=== PATIENT | male | born 1975 | race Caucasian/White ===

== ENCOUNTER 2017-10-02 14:48 | Emergency (ER) | payer OTHER ==
[2017-10-02] MEDS ORDERED: HYDROmorphone 0.5 MG/0.5 ML SYRINGE IM ONE (16:07)
[2017-10-02] MEDS ORDERED: Diazepam 5 MG Tab PO ONE (16:08)
--- NOTE | 2017-10-02 16:22 | EDM.PDOC ---
<Alicia Bergeron - Last Filed: 10/02/17 16:09> ED HPI GENERAL MEDICAL PROBLEM - General Chief Complaint: Back Pain or Injury Stated Complaint: NECK PAIN Time Seen by Provider: 10/02/17 15:45 Source of Information: Reports: Patient History Limitations: Reports: No Limitations - History of Present Illness INITIAL COMMENTS - FREE TEXT/NARRATIVE: Patient is a 42-year-old male who presents to the ED with back pain. He injured his back at work about a month ago. 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 Initially he complained of lower left back pain that radiated down the left leg. Reports occasional numbness in the left toes. He has been seeing Dr. Malone at [facility] who referred him to PT. On Thursday he went into PT, but complained of pain in his upper back that would radiate up into the left neck causing muscle tightness and torticollis. He complains of severe muscles spasms in the upper back and neck. He has been taking Ibuprofen, applying ice and taking hot showers with some relief of the pain. He was prescribed Norflex today, which he did take but unsure if it helped relieve the spasms. Denies any recent trauma since previous injury to back. neck/upper back Pain Score (Numeric/FACES): 8 - Related Data Allergies Allergy/AdvReac Type Severity Reaction Status Date / Time No Known Allergies Allergy Verified 10/02/17 15:00 Home Meds: Home Meds Acetaminophen/oxyCODONE [Percocet 325-5 MG] 1 each PO Q4HR PRN #20 tab 10/02/17 [Rx] Doans Back Pain Reliever 1 tab PO Q6H PRN 10/02/17 [History] Ibuprofen 200 mg PO ASDIRECTED PRN 10/02/17 [History] Methyl Salicylate/Menthol [Icy Hot] 1 appful TP ASDIRECTED PRN 10/02/17 [History ] Orphenadrine [Norflex] 100 mg PO BID PRN 10/02/17 [History] predniSONE [Prednisone] 20 mg PO DAILY #9 tablet 10/02/17 [Rx] Past Medical History - Past Health History Medical/Surgical History: Denies Medical/Surgical History Musculoskeletal History: Reports: Other (See Below) Other Musculoskeletal History: current back injury Social & Family History - Family History Family Medical History: Noncontributory - Tobacco Use Smoking Status *Q: Current Some Day Smoker Years of Tobacco use: 1 Packs/Tins Daily: 0.1 - Caffeine Use Caffeine Use: Reports: Tea - Recreational Drug Use Recreational Drug Use: No ED ROS GENERAL - Review of Systems Musculoskeletal: Reports: Neck Pain (left ), Shoulder Pain (left shoulder radiatig up into necl), Back Pain (Left lower and upper back), Muscle Pain, Muscle Stiffness (back) ED EXAM,LOWER BACK PAIN/INJURY - Physical Exam Exam Limited By: No Limitations General Appearance: Alert, WD/WN Back Exam: Muscle Spasm (right back approximately T8-T12), Paraspinal Tenderness Extremities: Limited Range of Motion (deferred due to his neck pain) Neurological: Alert, Normal Mood/Affect, Normal Dorsiflexion, Normal Plantar Flexion, Oriented x 3 Course - Vital Signs Last Recorded V/S: Last Vital Signs Temp 98.2 F 10/02/17 14:56 Pulse 68 10/02/17 14:56 Resp 18 10/02/17 14:56 BP 138/96 H 10/02/17 14:56 Pulse Ox 99 10/02/17 14:56 - Orders/Labs/Meds Meds: Medications Discontinued Medications Generic Name Dose Route Start Last Admin Trade Name Freq PRN Reason Stop Dose Admin Diazepam 5 mg 10/02/17 16:08 10/02/17 16:27 Valium. PO 10/02/17 16:09 5 mg ONETIME ONE Administration Hydromorphone HCl 1 mg 10/02/17 16:07 10/02/17 16:24 Dilaudid IM 10/02/17 16:08 1 mg ONETIME ONE Administration Departure - Departure Disposition: Home, Self-Care 01 Clinical Impression: Torticollis, Lumbar spine strain - Discharge Information Prescriptions: Acetaminophen/oxyCODONE [Percocet 325-5 MG] 1 each PO Q4HR PRN #20 tab PRN Reason: Pain predniSONE [Prednisone] 20 mg PO DAILY #9 tablet Instructions: Acute Torticollis, Adult Referrals: PCP,None [Primary Care Provider] - Rock Mckeon MD [Physician] - Forms: ED Department Discharge Additional Instructions: you were given medication the other can affect your ability to drive and operate machinery. Do not drive or operate machinery within 12 hours of taking prescription narcotic pain medication. continue taking the norflex as prescribed. Take the percocet 1-2 tabs every 6 hours prn pain. percocet is habit forming, take as few of these as needed to control your pain. Do not drive or operate machienery within 12 hours of taking percocet. Do not take more than 3200 mg ibuprofen from all sources in 1 day. Take the prednisone as prescribed. 3 tabs PO day 1 then 1 tab PO days 2-7. Follow-up with [facility] in 1-2 weeks for a recheck. If your symptoms do not improve you may require imaging such as an MRI. Please return to the ER should your symptoms change or worsen. 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 Patient denies any trauma since the injury in August. ED ROS GENERAL - Review of Systems Review Of Systems: See Below Neurological: Reports: Tingling (toes, left hand fingers 3-5), Weakness. Denies : Numbness ED EXAM,LOWER BACK PAIN/INJURY - Physical Exam Exam: See Below Respiratory/Chest: No Respiratory Distress, Lungs Clear Cardiovascular: Normal Peripheral Pulses, Regular Rate, Rhythm, No Murmur Extremities: Normal Inspection, Normal Capillary Refill Psychiatric: Normal Affect, Normal Mood Skin Exam: Warm, Dry, Normal Color Course - Re-Assessments/Exams Free Text/Narrative Re-Assessment/Exam: 10/02/17 17:04 I have seen the patient and agree with the HPI, ROS and PE as documented by Alicia Bergeron, WHIT. checked on that patient he is feeling much better. Will discharge home at this time. Will give prednisone and pain pills for relief. This is felt to be muscular in nature. Recommend follow-up with [facility], if not better may need additional testing. No imaging indicated today. Patient is in agreement of treatment plan. Discharge instructions as documented. Departure - Departure Time of Disposition: 17:05 Condition: Fair - Discharge Information *PRESCRIPTION DRUG MONITORING PROGRAM REVIEWED*: Yes *COPY OF PRESCRIPTION DRUG MONITORING REPORT IN PATIENT ADDIS: No
== END 2017-10-02 17:30 | disposition home or self-care (01) ==
LOC: JD.ED 14:48
DX: S39.012A Strain of muscle, fascia and tendon of lower back, initial encounter (principal); M43.6 Torticollis; F17.210 Nicotine dependence, cigarettes, uncomplicated; X50.0XXA Overexertion from strenuous movement or load, initial encounter
CPT/HCPCS: 96372; 99284; A9270; J1170

== ENCOUNTER 2018-03-19 23:57 | Emergency (ER) | payer BC, OTHER ==
--- NOTE | 2018-03-20 00:54 | EDM.PDOC ---
ED HPI GENERAL MEDICAL PROBLEM - General Chief Complaint: Eye Problems Stated Complaint: LEFT EYE INJURY Time Seen by Provider: 03/20/18 00:17 Source of Information: Reports: Patient, RN Notes Reviewed, Significant Other ( Girlfriend) History Limitations: Reports: No Limitations - History of Present Illness INITIAL COMMENTS - FREE TEXT/NARRATIVE: The patient states that he had 3 or 4 beers tonight, then tripped and fell, striking the skin above his left eye on the corner of a coffee table, around 23: 15. The wound was washed with hydroperoxide, and Steri-Strips applied, to control bleeding. The patient states that he is otherwise uninjured. He denies a foreign body sensation, left globe pain, or altered vision. The patient states that his last tetanus vaccination was in 2013 or 2014. The patient's PCP is Dr. Givens. Left Eye Pain Score (Numeric/FACES): 4 - Related Data Allergies Allergy/AdvReac Type Severity Reaction Status Date / Time No Known Allergies Allergy Verified 03/20/18 00:13 Home Meds: Home Meds . [No Known Home Meds] 03/20/18 [History] Past Medical History - Past Surgical History HEENT Surgical History: Reports: Oral Surgery (wisdom teeth extraction) Social & Family History - Family History Family Medical History: Noncontributory - Tobacco Use Smoking Status *Q: Current Every Day Smoker Years of Tobacco use: 24 Packs/Tins Daily: 0.3 Packs/Tins Daily Comment: Down from 1 ppd - Caffeine Use Caffeine Use: Reports: Tea - Alcohol Use Alcohol Use History: Yes Alcohol Use Frequency: Socially (occasionally to excess) - Recreational Drug Use Recreational Drug Use: Yes Drug Use in Last 12 Months: No Recreational Drug Type: Reports: Marijuana/Hashish (Last smoked around 2003) - Living Situation & Occupation Living situation: Reports: Single, Alone 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 ED EXAM, SKIN/RASH Exam: See Below Exam Limited By: No Limitations General Appearance: Alert, WD/WN, No Apparent Distress Eye Exam: Bilateral Eye: EOMI, Normal Inspection Ears: Normal External Exam Nose: Normal Inspection Throat/Mouth: Normal Inspection, Normal Lips, Normal Voice, No Airway Compromise Head: Normocephalic, Other (2.0 linear laceration to the skin above the patient' s left eye, inferior to the left eyebrow. The wound is clean, with minimal bleeding.) ED SKIN PROCEDURES - Laceration/Wound Repair Left Face Lac/Wound length In cm: 2.0 Appearance: Subcutaneous, Linear, Clean Distal NVT: Neuro & Vascular Intact, No Tendon Injury Skin Prep: Saline Exploration/Debridement/Repair: Wound Explored, In a Bloodless Field, Explored to Base, No Foreign Material Found, Wound Margins Revised Closed with: Dermabond Sterile Dressing Applied: None Tetanus Status Addressed: Yes Complications: No Course - Vital Signs Last Recorded V/S: Last Vital Signs Temp 36.3 C 03/20/18 00:14 Pulse 73 03/20/18 00:14 Resp 20 03/20/18 00:14 BP 138/89 03/20/18 00:14 Pulse Ox 97 03/20/18 00:14 - Re-Assessments/Exams Free Text/Narrative Re-Assessment/Exam: 03/20/18 00:50 The patient's wound was closed with Dermabond, to good cosmetic effect. He tolerated the procedure well. Departure - Departure Time of Disposition: 00:50 Disposition: Home, Self-Care 01 Condition: Good Clinical Impression: Facial laceration - Discharge Information *PRESCRIPTION DRUG MONITORING PROGRAM REVIEWED*: Not Applicable *COPY OF PRESCRIPTION DRUG MONITORING REPORT IN PATIENT ADDIS: Not Applicable Referrals: Madiha Calixto MD [Primary Care Provider] - Forms: ED Department Discharge Additional Instructions: You were seen in the emergency room after falling and cutting the skin above your left eye. The wound was closed with Dermabond in the ER. Take [id number] Tylenol or ibuprofen as needed for discomfort. You may wash your face with ordinary soap and water, however, do not pick at the Dermabond. Allow it to flake off on its own, which usually takes several days. If any other problems, please do not hesitate to return to the ER.
== END 2018-03-20 01:00 | disposition home or self-care (01) ==
LOC: JD.ED 23:57
DX: S01.81XA Laceration without foreign body of other part of head, initial encounter (principal); F17.210 Nicotine dependence, cigarettes, uncomplicated; W01.198A Fall on same level from slipping, tripping and stumbling with subsequent striking against other object, initial encounter
CPT/HCPCS: 12011; 99283-25

== ENCOUNTER 2019-11-16 09:41 | Emergency (ER) | payer OTHER, BC ==
--- NOTE | 2019-11-16 10:00 | EDM.PDOC ---
ED HPI GENERAL MEDICAL PROBLEM - General Chief Complaint: ENT Problem Stated Complaint: RIGHT EYE LAC DOWN EYE LID Time Seen by Provider: 11/16/19 10:00 - History of Present Illness INITIAL COMMENTS - FREE TEXT/NARRATIVE: 44-year-old male presents the emergency room with a right upper eyelid laceration. Patient was working with some siding material and standing on an unsteady surface he lost control of the sliding material that hit him in the right eye. The globe itself does not appear to be involved he has intact vision does not have any globe pain. His eyelid has a laceration yielding a flap of inner eyelid below the eyelashes. Patient has no other injuries associated with this most unfortunate event. Headache Pain Score (Numeric/FACES): 5 - Related Data Allergies Allergy/AdvReac Type Severity Reaction Status Date / Time No Known Allergies Allergy Verified 11/16/19 09:49 Home Meds: Home Meds Cyclobenzaprine [Flexeril] 1 tab PO TID PRN 11/16/19 [History] Fish Oil/[place]-3 Fatty Acids [Fish Oil 1,000 MG] 1 each PO DAILY 11/16/19 [History] L.acidoph,Paracasei, B.lactis [Probiotic] 1 each PO DAILY 11/16/19 [History] Multivitamin [Multi-Vitamin Daily] 1 tab PO DAILY 11/16/19 [History] Pyridoxine HCl (Vitamin B6) [Vitamin B-6] 1 tab PO DAILY 11/16/19 [History] SUMAtriptan succinate [Imitrex] 100 mg PO DAILY PRN 11/16/19 [History] Ubidecarenone [COQ-10] 30 mg PO DAILY 11/16/19 [History] Past Medical History - Past Health History Medical/Surgical History: Denies Medical/Surgical History Musculoskeletal History: Reports: Other (See Below) Other Musculoskeletal History: current back injury - Past Surgical History HEENT Surgical History: Reports: Oral Surgery (wisdom teeth extraction) Social & Family History - Family History Family Medical History: Noncontributory - Caffeine Use Caffeine Use: Reports: Tea - Living Situation & Occupation Living situation: Reports: Single, Alone 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) ED ROS ENT - Review of Systems Review Of Systems: See Below Constitutional: Denies: Fever, Chills HEENT: Reports: Eye Pain (Eyelid pain vision is normal) Respiratory: Reports: No Symptoms Cardiovascular: Reports: No Symptoms Endocrine: Reports: No Symptoms GI/Abdominal: Reports: No Symptoms ED EXAM, ENT - Physical Exam Exam: See Below Exam Limited By: No Limitations General Appearance: Alert, No Apparent Distress Eye Exam: Bilateral Eye: Other (Right upper eyelid has a significant laceration that looks like the piece of siding came in from the medial direction catching the upper eyelid and tearing it open and there is a flap from the inner eyelid hanging below the eyelashes. Grossly the globe appears okay.) Respiratory/Chest: No Respiratory Distress, Lungs Clear, Normal Breath Sounds Cardiovascular: Regular Rate, Rhythm, No Edema, No Murmur Course - Vital Signs Last Recorded V/S: Last Vital Signs Temp 36.3 C 11/16/19 09:56 Pulse 80 11/16/19 10:28 Resp 18 11/16/19 10:28 BP 138/93 H 11/16/19 10:28 Pulse Ox 98 11/16/19 10:28 - Re-Assessments/Exams Free Text/Narrative Re-Assessment/Exam: 11/16/19 10:28 This is getting be a complicated repair and I believe it is in the patient's best interest to have a specialist put this together. Case discussed with Dr. Hammond events solutions consultant with [facility] in [place] who will see him at the [facility] as soon as the patient can get up there. Departure - Departure Time of Disposition: 10:29 Disposition: Home, Self-Care 01 Clinical Impression: Right eyelid laceration - Discharge Information Referrals: Madiha Calixto MD [Primary Care Provider] - Forms: ED Department Discharge Additional Instructions: Follow-up with Dr. Hammond at the [facility] as soon as you can get up there. Do not have anything to eat or drink in route. The address is [address] [place] [address] Sepsis Event Note (ED) - Evaluation Sepsis Screening Result: No Definite Risk - Focused Exam Vital Signs: Vital Signs Temp Pulse Resp BP Pulse Ox 11/16/19 10:28 80 18 138/93 H 98 11/16/19 09:56 36.3 C 76 18 148/103 H 98
== END 2019-11-16 10:35 | disposition home or self-care (01) ==
LOC: JD.ED 09:41
DX: S01.111A Laceration without foreign body of right eyelid and periocular area, initial encounter (principal); Z79.899 Other long term (current) drug therapy; W22.8XXA Striking against or struck by other objects, initial encounter
CPT/HCPCS: 99282

== ENCOUNTER 2019-12-31 12:38 | Emergency (ER) | payer OTHER, BC ==
--- NOTE | 2019-12-31 14:27 | EDM.PDOC ---
ED HPI GENERAL MEDICAL PROBLEM - General Chief Complaint: Eye Problems Stated Complaint: FB IN EYE Time Seen by Provider: 12/31/19 14:19 Source of Information: Reports: Patient, RN Notes Reviewed - History of Present Illness INITIAL COMMENTS - FREE TEXT/NARRATIVE: 44 yr old male with R eye pain, feels like a stitch or something is rubbing, irritating R eye. He suffered R upper eye lid lac about a month ago, had surgery by a [facility], has been doing OK with swelling R upper eye lid lessening over the last few weeks. Mild Discomfort R upper eyelid yesterday, became much more severe during the night and continues very uncomfortable today. More mattering and drainage R eye lid yesterday and today. - Related Data Allergies Allergy/AdvReac Type Severity Reaction Status Date / Time No Known Allergies Allergy Verified 11/16/19 09:49 Home Meds: Home Meds Cyclobenzaprine [Flexeril] 1 tab PO TID PRN 11/16/19 [History] Fish Oil/[place]-3 Fatty Acids [Fish Oil 1,000 MG] 1 each PO DAILY 11/16/19 [History] L.acidoph,Paracasei, B.lactis [Probiotic] 1 each PO DAILY 11/16/19 [History] Multivitamin [Multi-Vitamin Daily] 1 tab PO DAILY 11/16/19 [History] Pyridoxine HCl (Vitamin B6) [Vitamin B-6] 1 tab PO DAILY 11/16/19 [History] SUMAtriptan succinate [Imitrex] 100 mg PO DAILY PRN 11/16/19 [History] Ubidecarenone [COQ-10] 30 mg PO DAILY 11/16/19 [History] Past Medical History - Past Health History Medical/Surgical History: Denies Medical/Surgical History Cardiovascular History: Reports: None Respiratory History: Reports: None Gastrointestinal History: Reports: None Genitourinary History: Reports: None Musculoskeletal History: Reports: Other (See Below) Other Musculoskeletal History: current back injury Neurological History: Reports: Migraines Endocrine/Metabolic History: Reports: None Immunologic History: Reports: None Oncologic (Cancer) History: Reports: None Dermatologic History: Reports: None - Infectious Disease History Infectious Disease History: Reports: Chicken Pox - Past Surgical History HEENT Surgical History: Reports: Oral Surgery (wisdom teeth extraction) Social & Family History - Family History Family Medical History: Noncontributory - Caffeine Use Caffeine Use: Reports: Tea - Living Situation & Occupation Living situation: Reports: Single, Alone 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) ED ROS GENERAL - Review of Systems Review Of Systems: See Below Constitutional: Denies: Fever, Chills HEENT: Reports: Eye Discharge, Eye Pain Respiratory: Reports: No Symptoms Cardiovascular: Reports: No Symptoms GI/Abdominal: Reports: No Symptoms Musculoskeletal: Reports: No Symptoms, Muscle Pain Skin: Reports: Erythema (R upper eyelid) Neurological: Reports: No Symptoms ED EXAM GENERAL W FULL EYE - Physical Exam Exam: See Below General Appearance: Alert, Moderate Distress Eye Exam: Bilateral Eye: PERRL Visual Acuity (R) 20/: 25 Visual Acuity (L) 20/: 20 Eyelids: Right: Edema, Erythema, Lid Everted for Exam, Other (small amt of exudate distal upper lid, 2 eye lashes are matted downward to distal lower margin of lid likely scratching and irritating cornea) Conjunctiva & Sclera: Bilateral: Normal Appearance Cornea Exam: Bilateral: Normal Appearance Head: No: Facial Swelling, Facial Tenderness Neck: Supple Respiratory/Chest: No Respiratory Distress Skin Exam: Warm, Dry Course - Vital Signs Last Recorded V/S: Last Vital Signs Temp 98.1 F 12/31/19 13:05 Pulse Resp 16 12/31/19 13:05 BP 132/85 12/31/19 13:05 Pulse Ox 97 12/31/19 13:05 - Re-Assessments/Exams Free Text/Narrative Re-Assessment/Exam: 12/31/19 18:13 complete relief of pain with topical properacaine. he has a hair from the upper eyelid that is matted down distal eyelid rubbing on his cornea irritating cornea and creating superfiscial abrasion R cornea. culture of drainage distal lid obtained. Discharge instr. as documented. 12/31/19 19:17 Departure - Departure Time of Disposition: 14:21 Disposition: Home, Self-Care 01 Condition: Fair Clinical Impression: Corneal abrasion, Conjunctivitis - Discharge Information Instructions: Corneal Abrasion, [id number], How to Use Eye Drops and Eye Ointments Referrals: Madiha Calixto MD [Primary Care Provider] - Forms: ED Department Discharge Additional Instructions: Cipro opthalmic soln 1 to 2 drops 4 times daily. gentle patch R eye as needed to reduce blinking irritation. Call your Opthamologist's clinic Thursday morning and request follow up appt. first available appointment. Culture has been done R upper eyelid. Sepsis Event Note (ED) - Focused Exam Vital Signs: Vital Signs Temp Resp BP Pulse Ox 12/31/19 13:05 98.1 F 16 132/85 97
== END 2019-12-31 14:40 | disposition home or self-care (01) ==
LOC: JD.ED 12:38
DX: S05.01XA Injury of conjunctiva and corneal abrasion without foreign body, right eye, initial encounter (principal); H10.9 Unspecified conjunctivitis; G43.909 Migraine, unspecified, not intractable, without status migrainosus; Z79.899 Other long term (current) drug therapy
CPT/HCPCS: 99283

== ENCOUNTER 2020-04-04 19:48 | Emergency (ER) | payer BC, OTHER ==
[2020-04-04] MEDS ORDERED: Lidocaine 1% 10 ML MDV INJECT ONE (20:29)
--- NOTE | 2020-04-04 20:34 | EDM.PDOC ---
ED HPI GENERAL MEDICAL PROBLEM - General Chief Complaint: Laceration Stated Complaint: LIP LAC Time Seen by Provider: 04/04/20 20:13 Source of Information: Reports: Patient, RN Notes Reviewed History Limitations: Reports: No Limitations - History of Present Illness INITIAL COMMENTS - FREE TEXT/NARRATIVE: Patient is a 44-year-old male who presents to the ED for a lower lip lacer ation., Playing with his great Braden that is 150 pounds, when the dog was playing with a bone and got excited, and ended up "headbutting him". This resulted in a 1 cm linear lip laceration to the left lower lip. This is gaping, and he was not able to keep it shut with pressure alone. Other than this he is up-to-date on immunizations. He notes that the dog did not bite him. Patient denies any other sick-like symptoms, fever/chills, cough/shortness of breath, nausea/vomiting/diarrhea. Lip Pain Score (Numeric/FACES): 2 - Related Data Allergies Allergy/AdvReac Type Severity Reaction Status Date / Time No Known Allergies Allergy Verified 04/04/20 20:11 Home Meds: Home Meds Cyclobenzaprine [Flexeril] 1 tab PO TID PRN 11/16/19 [History] Fish Oil/[place]-3 Fatty Acids [Fish Oil 1,000 MG] 1 each PO DAILY 11/16/19 [History] L.acidoph,Paracasei, B.lactis [Probiotic] 1 each PO DAILY 11/16/19 [History] Multivitamin [Multi-Vitamin Daily] 1 tab PO DAILY 11/16/19 [History] Pyridoxine HCl (Vitamin B6) [Vitamin B-6] 1 tab PO DAILY 11/16/19 [History] SUMAtriptan succinate [Imitrex] 100 mg PO DAILY PRN 11/16/19 [History] Ubidecarenone [COQ-10] 30 mg PO DAILY 11/16/19 [History] Cholecalciferol (Vitamin D3) [Vitamin D3] 1,000 unit PO DAILY 04/04/20 [History] Past Medical History - Past Health History Medical/Surgical History: Denies Medical/Surgical History Cardiovascular History: Reports: None Respiratory History: Reports: None Gastrointestinal History: Reports: None Genitourinary History: Reports: None Musculoskeletal History: Reports: Back Pain, Chronic Other Musculoskeletal History: current back injury Neurological History: Reports: Migraines Endocrine/Metabolic History: Reports: None Immunologic History: Reports: None Oncologic (Cancer) History: Reports: None Dermatologic History: Reports: None - Infectious Disease History Infectious Disease History: Reports: Chicken Pox, MRSA - Past Surgical History HEENT Surgical History: Reports: Eye Surgery, Oral Surgery Social & Family History - Family History Family Medical History: No Pertinent Family History - Tobacco Use Tobacco Use Status *Q: Current Every Day Tobacco User Years of Tobacco use: 2 Packs/Tins Daily: 0.1 - Caffeine Use Caffeine Use: Reports: Coffee - Recreational Drug Use Recreational Drug Use: No - Living Situation & Occupation Living situation: Reports: Single, Alone 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 ED EXAM, SKIN/RASH Exam: See Below Exam Limited By: No Limitations General Appearance: Alert, WD/WN, No Apparent Distress Eye Exam: Bilateral Eye: EOMI, Normal Inspection, PERRL Throat/Mouth: Normal Oropharynx, Normal Voice, No Airway Compromise Respiratory/Chest: No Respiratory Distress, Lungs Clear, Normal Breath Sounds, No Accessory Muscle Use, Chest Non-Tender Cardiovascular: Normal Peripheral Pulses, Regular Rate, Rhythm, No Edema Extremities: Normal Inspection, Normal Capillary Refill Neurological: Alert, Oriented, Normal Cognition, No Motor/Sensory Deficits Psychiatric: Normal Affect, Normal Mood Skin: Warm, Dry, Normal Color, No Rash, Wound/Incision (1 cm vertical linear laceration to the left lower lip) ED SKIN PROCEDURES - Laceration/Wound Repair Left Lower Lateral Face Appearance: Superficial, Clean Distal NVT: Neuro & Vascular Intact, No Tendon Injury Anesthetic Type: Local Local Anesthesia - Lidocaine (Xylocaine): 1% Plain Local Anesthetic Volume: 1cc Skin Prep: Chlorhexidine (Hibiciens), Saline Exploration/Debridement/Repair: Wound Explored, In a Bloodless Field, Explored to Base, No Foreign Material Found Closed with: Sutures Lac/Wound length In cm: 1 Suture Size: 5-0 # of Sutures: 2 Suture Type: Prolene, Interrupted, Simple Sterile Dressing Applied: Nurse Tetanus Status Addressed: Yes Complications: No Course - Vital Signs Last Recorded V/S: Last Vital Signs Temp 97.4 F 04/04/20 20:09 Pulse 82 04/04/20 20:09 Resp 16 04/04/20 20:09 BP 137/96 H 04/04/20 20:09 Pulse Ox 95 04/04/20 20:09 - Orders/Labs/Meds Meds: Medications Discontinued Medications Generic Name Dose Route Start Last Admin Trade Name Rosi PRN Reason Stop Dose Admin Lidocaine HCl 10 ml 04/04/20 20:29 Xylocaine 1% INJECT 04/04/20 20:30 ONETIME ONE Departure - Departure Time of Disposition: 20:33 Disposition: Home, Self-Care 01 Condition: Good Clinical Impression: Lip laceration Qualifiers: Encounter type: initial encounter Qualified Code(s): S01.511A - Laceration without foreign body of lip, initial encounter - Discharge Information *PRESCRIPTION DRUG MONITORING PROGRAM REVIEWED*: No *COPY OF PRESCRIPTION DRUG MONITORING REPORT IN PATIENT ADDIS: No Instructions: Mouth Laceration, [id number] Referrals: Madiha Calixto MD [Primary Care Provider] - Forms: ED Department Discharge Additional Instructions: You have been evaluated in the ED for your laceration. Sutures will need to stay in for 5-7 days. You may return to the ED or any clinic for removal. Please keep this area clean and dry, you may cleanse with regular soap and water. No vigorous scrubbing. Please try to avoid submerging the affected area in water for prolonged periods of time until the sutures are removed. Watch out for signs of infection like increased redness, swelling, pain at the laceration site, or if you should develop any fevers or chills. Please return to ED if your symptoms change or worsen. Sepsis Event Note (ED) - Evaluation Sepsis Screening Result: No Definite Risk - Focused Exam Vital Signs: Vital Signs Temp Pulse Resp BP Pulse Ox 04/04/20 20:09 97.4 F 82 16 137/96 H 95
== END 2020-04-04 21:05 | disposition home or self-care (01) ==
LOC: JD.ED 19:48
DX: S01.511A Laceration without foreign body of lip, initial encounter (principal); Z72.0 Tobacco use; X58.XXXA Exposure to other specified factors, initial encounter
CPT/HCPCS: 12011; 99282; 99282-25

== ENCOUNTER 2021-01-13 09:21 | Emergency (ER) | payer OTHER, BC ==
[2021-01-13] MEDS ORDERED: Orphenadrine 100 MG Tab.ER PO STA (11:07)
[2021-01-13] MEDS ORDERED: Acetaminophen/HYDROcodone 325-5 MG Tab PO ONE (11:07)
[2021-01-13] MEDS ORDERED: Ibuprofen 600 MG Tab PO ONE (11:07)
--- NOTE | 2021-01-13 11:09 | EDM.PDOC ---
ED HPI GENERAL MEDICAL PROBLEM - General Chief Complaint: Back Pain or Injury Stated Complaint: BACK INJURY Time Seen by Provider: 01/13/21 10:37 Source of Information: Reports: Patient, Family () History Limitations: Reports: No Limitations - History of Present Illness INITIAL COMMENTS - FREE TEXT/NARRATIVE: Mr. Munoz is a pleasant 45-year-old gentleman who now presents to the ED stating that he developed an exacerbation of his chronic/recurring lower back pain on Thursday afternoon, after lifting a heavy item at work. He states that he has a history of chronic lower back pain radiating up towards his head, causing migraines, and radiating down, causing bilateral lower extremity tingling and numbness. He denies having weakness to either lower extremity, and denies i ncontinence of bowel or bladder. He has had similar symptoms numerous times in the past. He states that an MRI shows some abnormality - he cannot recall if it is degenerative disc disease or arthritis. He states that he saw a Neurosurgeon, whose name he cannot recall, and was told that his problems are work-related, but because the injury was already 2 years old at that time, surgery was not an option. He is under the care of a pain spa manager, who has performed local injections, and recommended Botox, however, he states that he requires a referral for Botox from his PCP, which is still in the works. The patient states that he took some Flexeril this morning, which did not help. He states that the Flexeril was prescribed by his PCP, and that he has been taking it on and off over the past 3 years. Here in the ED, the patient's initial BP is found to be mildly elevated 149/103, otherwise, he is hemodynamically stable, afebrile, saturating 100% on room air. He appears to be relatively comfortable while seated still on the gurney, in no acute distress. Other than his recurrent lower back issues, the patient denies having a recent fever, chills, sore throat, ear pain, nasal or sinus congestion, cough, dyspnea, chest pain, palpitations, nausea, vomiting, constipation, diarrhea, abdominal pain, urinary symptoms, recent weight gain or weight loss, recent bloody bowel movements or black bowel movements, recent joint aches, headaches, or rashes. The patient's PCP is Dr. Madiha Givens. His pain spa manager is Dr. Alexys Morataya. He does not recall the name of his Neurosurgeon. His Neurologist is Dr. Rock Jang. His Orthopedic Surgeon is Dr. Conrad Morales. Lower Back Pain Score (Numeric/FACES): 10 - Related Data Allergies Allergy/AdvReac Type Severity Reaction Status Date / Time No Known Allergies Allergy Verified 01/13/21 09:48 Home Meds: Home Meds Cyclobenzaprine [Flexeril] 1 tab PO TID PRN 11/16/19 [History] Fish Oil/[place]-3 Fatty Acids [Fish Oil 1,000 MG] 1 each PO DAILY 11/16/19 [History] L.acidoph,Paracasei, B.lactis [Probiotic] 1 each PO DAILY 11/16/19 [History] Multivitamin [Multi-Vitamin Daily] 1 tab PO DAILY 11/16/19 [History] Pyridoxine HCl (Vitamin B6) [Vitamin B-6] 1 tab PO DAILY 11/16/19 [History] SUMAtriptan succinate [Imitrex] 100 mg PO DAILY PRN 11/16/19 [History] Ubidecarenone [COQ-10] 30 mg PO DAILY 11/16/19 [History] Cholecalciferol (Vitamin D3) [Vitamin D3] 1,000 unit PO DAILY 04/04/20 [History] Orphenadrine [Norflex] 1 tab PO Q12H PRN #14 tab.er 01/13/21 [Rx] Past Medical History Musculoskeletal History: Reports: Back Pain, Chronic, Other (See Below) (Bilateral carpal tunnel syndrome) Neurological History: Reports: Migraines - Infectious Disease History Infectious Disease History: Reports: Chicken Pox, MRSA - Past Surgical History HEENT Surgical History: Reports: Eye Surgery (right upper eyelid laceration repair), Oral Surgery (dental extractions) Social & Family History - Tobacco Use Years of Tobacco use: 27 Packs/Tins Daily: 0.2 Packs/Tins Daily Comment: Down from 1 ppd Tobacco Use Comment: Started smoking 1993 - Caffeine Use Caffeine Use: Reports: Coffee - Alcohol Use Alcohol Use History: Yes Alcohol Use Frequency: Socially (occasionally to excess) - Recreational Drug Use Recreational Drug Use: Yes Drug Use in Last 12 Months: No Recreational Drug Type: Reports: Marijuana/Hashish (last smoked around 2003) - Living Situation & Occupation Living situation: Reports: , with Spouse 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 ED EXAM,LOWER BACK PAIN/INJURY - Physical Exam Exam: See Below Exam Limited By: No Limitations General Appearance: Alert, WD/WN, No Apparent Distress Eye Exam: Bilateral Eye: EOMI, Normal Inspection Ears: Normal External Exam, Hearing Grossly Normal Nose: Normal Inspection Throat/Mouth: Normal Inspection, Normal Lips, Normal Voice, No Airway Compromise Head: Atraumatic, Normocephalic Neck: Normal Inspection, Full Range of Motion Respiratory/Chest: No Respiratory Distress, Lungs Clear, Normal Breath Sounds, No Accessory Muscle Use Cardiovascular: Normal Peripheral Pulses, Regular Rate, Rhythm, No Edema, No Gallop, No JVD, No Murmur, No Rub GI/Abdominal: Normal Bowel Sounds, Soft, Non-Tender, No Organomegaly, No Di stention, No Abnormal Bruit, No Mass Back Exam: Other (Patient moves slowly due to lower back pain). No: Muscle Spasm, Paraspinal Tenderness, Vertebral Tenderness Extremities: Normal Inspection, Normal Range of Motion, No Pedal Edema, Normal Capillary Refill Neurological: Alert, No Motor/Sensory Deficits, Oriented x 3 Psychiatric: Normal Affect Skin Exam: Warm, Dry, Intact, Normal Color, No Rash Course - Vital Signs Last Recorded V/S: Last Vital Signs Temp 36.1 C 01/13/21 09:48 Pulse 89 01/13/21 09:48 Resp 18 01/13/21 09:48 BP 149/103 H 01/13/21 09:48 Pulse Ox 100 01/13/21 09:48 - Orders/Labs/Meds Meds: Medications Discontinued Medications Generic Name Dose Route Start Last Admin Trade Name Freq PRN Reason Stop Dose Admin Hydrocodone Bitart/Acetaminophen 2 tab 01/13/21 11:07 01/13/21 11:19 Acetaminophen/Hydrocodone 325-5 Mg Tab PO 01/13/21 11:08 2 tab ONETIME ONE Administration Ibuprofen 600 mg 01/13/21 11:07 01/13/21 11:19 Ibuprofen 600 Mg Tab PO 01/13/21 11:08 600 mg ONETIME ONE Administration Orphenadrine Citrate 100 mg 01/13/21 11:07 01/13/21 11:19 Orphenadrine 100 Mg Tab.Er PO 01/13/21 11:08 100 mg ONETIME STA Administration - Re-Assessments/Exams Free Text/Narrative Re-Assessment/Exam: 01/13/21 11:08 As above, the patient appears to be experiencing a flare of his chronic lower back pain with bilateral lower extremity radiculopathy. The etiology of his back pain is not entirely clear based on his history - he may have degenerative disc disease or arthritis. Flexeril has not been working well for him. I explained that Flexeril is marketed as a muscle relaxant, but does not actually relax muscles. I prefer Norflex, which does not work instantaneously, but does work very well, and is much better tolerated. It works well with ibuprofen or other NSAIDs. He related that he has been told in the past that he has taken too much ibuprofen and acetaminophen, and that he should not take anymore, however, he does not have known chronic renal insufficiency or liver damage, therefore a short course of ibuprofen should not be a problem. For today's purposes, the patient will also be given 2 tablets of [place], however, I explained that one of the side effects of opioids is itself muscle spasm, therefore opioids are not a good choice for the treatment of muscle spasm. The patient expressed understanding. 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 He stated that he will be following up with [facility] tomorrow. Departure - Departure Time of Disposition: 11:11 Disposition: Home, Self-Care 01 Condition: Good Clinical Impression: Chronic radicular pain of lower back - Discharge Information *PRESCRIPTION DRUG MONITORING PROGRAM REVIEWED*: Not Applicable *COPY OF PRESCRIPTION DRUG MONITORING REPORT IN PATIENT ADDIS: Not Applicable Prescriptions: Orphenadrine [Norflex] 1 tab PO Q12H PRN #14 tab.er PRN Reason: Muscle Spasm - Painful Instructions: Managing Chronic Back Pain Referrals: Madiha Calixto MD [Primary Care Provider] - Alexys Morataya MD [Ordering Only Provider] - Rock Jang MD [Ordering Only Provider] - Conrad Morales Sr, MD [Physician] - Forms: ED Department Discharge Additional Instructions: You were seen in the emergency room for an exacerbation of your chronic/recurring lower back pain, not relieved with Flexeril. As discussed, the underlying cause of your lower back pain is not clear - it may be due to a bulging intervertebral disc, or arthritis, or some combination of the two. You were treated with 2 tablets of the opioid [place] in the ER. Do not drive or operate heavy machinery for 12 hours. Lockport may cause constipation, so consider taking a stool softener. You were started on the muscle relaxant Norflex in the ER, and a prescription for Norflex has been sent to the [facility], located just south and across the [address] from [facility]. The pharmacy will be open between noon and 4 PM today. Take 1 tablet of Norflex every 12 hours, starting this evening, 01/13/2021. Since you are taking Norflex, you should STOP TAKING FLEXERIL. Norflex works well with ibuprofen. We recommend that you take 3 tablets (600 mg) of [id number] ibuprofen every 8 hours, with food, for the next 2 or 3 days. As discussed, we recommend that you stay active. Swimming is best, although walking is good, as well. Please follow-up with [facility], at the next available opportunity. If any other problems, please do not hesitate to return to the ER. Sepsis Event Note (ED) - Evaluation Sepsis Screening Result: No Definite Risk - Focused Exam Vital Signs: Vital Signs Temp Pulse Resp BP Pulse Ox 01/13/21 09:48 36.1 C 89 18 149/103 H 100
== END 2021-01-13 12:00 | disposition home or self-care (01) ==
LOC: JD.ED 09:21
DX: M54.16 Radiculopathy, lumbar region (principal); Z72.0 Tobacco use
CPT/HCPCS: 99283; A9270

== ENCOUNTER 2023-04-19 22:37 | Emergency (ER) | payer OTHER | END 2023-04-20 01:20 | LOC: JD.ED 22:37 | DX: S01.01XA Laceration without foreign body of scalp, initial encounter (principal); S20.219A Contusion of unspecified front wall of thorax, initial encounter; S01.311A Laceration without foreign body of right ear, initial encounter; S80.02XA Contusion of left knee, initial encounter; S80.01XA Contusion of right knee, initial encounter; V89.2XXA Person injured in unspecified motor-vehicle accident, traffic, initial encounter | CPT/HCPCS: 70450; 70450-26; 71045; 71045-26; 99284 ==